=== PATIENT | male | born 1965 | race African-American/Black ===

== ENCOUNTER → 2019-06-02 | Day surgery (SDC) | payer BC ==
[~2019-06-02] MED LIST: IV RINGERS,LACTATED 1000ML 1,000 ML IV SCH; LIDOCAINE 1% PF 2 ML VIAL. ID PRN; MIDAZOLAM HCL/PF 2 MG/2 ML VIAL. IV PRN; PROPOFOL 40 ML IV ONE; fentaNYL PF VIAL 100 MCG/2 ML VIAL IV PRN
[2019-06-02 09:41] VITALS: BP 129/84
--- NOTE | 2019-06-02 09:50 | PREOP HP ---
DATE OF SERVICE: DATE OF PROCEDURE: 06/02/2019 REQUESTING PHYSICIAN: Madhavi Fisher MD PRIMARY CARE PHYSICIAN: Madhavi Fisher MD REASON FOR PROCEDURE: Colorectal cancer screening. HISTORY OF PRESENT ILLNESS: This is a 53-year-old gentleman who presents today for colorectal cancer screening. He denies any family history of colon cancer. He does admit to IBS. ALLERGIES: No known drug allergies. PAST MEDICAL HISTORY: IBS. SOCIAL HISTORY: He does drink alcohol and is a former smoker. REVIEW OF SYSTEMS: A 13-point review of systems was done. It is positive as per HPI and otherwise negative. MEDICATIONS: None. PHYSICAL EXAMINATION: VITAL SIGNS: He is afebrile and his vital signs are stable. GENERAL: He is a well-developed, well-nourished male, in no apparent distress. HEENT: His oropharynx is clear. CARDIOVASCULAR: S1, S2. LUNGS: Clear. ABDOMEN: Normoactive bowel sounds, soft, nontender, nondistended. EXTREMITIES: No edema. NEUROLOGIC: Awake, alert and oriented x 3. ASSESSMENT AND PLAN: Colorectal cancer screening. The risks and benefits of the procedure including bleeding, perforation, non-diagnosis and sedation were explained and he has agreed to proceed. Thank you for allowing me to participate in the care of this patient. SU MAURICE MD DR: JONATHAN/christian JOB#: [id number] / [id number]
--- NOTE | 2019-06-03 10:07 | PATHOLOGY ---
[facility] Accession Number: [id number] . 01 Material submitted: . PART A: cecum - CECAL POLYP PART B: colon - SIGMOID POLYP. Modifiers: sigmoid PART C: rectum - RECTAL POLYP . 01 Clinical history: . Pre-OP DX: Screening Post-OP DX: Polyps . 02 Diagnosis: A. Colon biopsy, cecal polyp: - Consistent with prominent mucosal fold. . B. Colon biopsy, sigmoid polyp: - Hyperplastic polyp. . C. Colorectal biopsy, rectal polyp: - Hyperplastic polyp. (JPM:[facility] 06/03/2019) P/06/03/2019 . 02 Comment: There are no adenomatous changes or evidence of malignancy. (JPM:[facility] 06/03/2019) . 02 Electronically signed: . Joby Quiles MD, Pathologist NPI- [id number] . 01 Gross description: . A. Received in formalin labeled "Loren, Tashi, cecal polyp," is a single segment of santillan soft tissue measuring 0.6 cm in maximum dimension. The specimen is entirely submitted in cassette A1. . B. Received in formalin labeled "Loren, Tashi, sigmoid polyp," is a single segment of santillan soft tissue measuring 0.4 cm in maximum dimension. The specimen is entirely submitted in cassette B1. . C. Received in formalin labeled "Loren, Tashi, rectal polyp," is a single segment of santillan soft tissue measuring 0.6 cm in maximum dimension. The specimen is entirely submitted in cassette C1. (TSD; 06/02/2019) TOB/TOB . 02 Pathologist provided ICD-10: K63.5, K62.1, Z12.11 . 02 CPT . 438234, 174053, 664171 Specimen Comment: A courtesy copy of this report has been sent to Specimen Comment: [phone], . Specimen Comment: Report sent to / DR VELASQUEZ Specimen Comment: A duplicate report has been generated due to demographic updates. Performed at: 01 [facility] [address], [place] [id number] MD Jeb Gastelum MD Phone: [phone] Performed at: [facility] [address] [place], [place] [id number] MD Joby Quiles MD Phone: [phone]
== END ==
LOC: SURG 08:16
PROVIDERS: ATTEND Internal Medicine Gastroenterology
DX: Z12.11 Encounter for screening for malignant neoplasm of colon (principal); K63.5 Polyp of colon; K62.1 Rectal polyp; K57.30 Diverticulosis of large intestine without perforation or abscess without bleeding; K64.0 First degree hemorrhoids; Z87.891 Personal history of nicotine dependence
CPT/HCPCS: 45380; 88305; J2704